=== PATIENT | female | born 1955 | race Caucasian/White ===

== ENCOUNTER 2016-11-29 10:38 | Outpatient (CLI) | payer OTHER ==
--- NOTE | 2016-12-11 10:22 | MMO ---
BILATERAL SCREENING MAMMOGRAM: INDICATION: Annual exam. COMPARISON: Prior exam dated 02/08/11. FINDINGS: The interpretation of this exam was assisted with computer-aided detection. Breast parenchyma is predominantly fatty replaced. Benign-appearing calcifications bilaterally. No suspicious mass, cluster of microcalcifications, or area of architectural distortion is evident. IMPRESSION: BI-RADS category 2 - benign. Recommend routine annual mammographic screening. POS: [facility]
== END 2016-11-29 10:39 | disposition home or self-care (01) ==
LOC: SCSMAMMO 10:38
PROVIDERS: ATTEND Family Medicine
DX: Z12.31 Encounter for screening mammogram for malignant neoplasm of breast (principal)
CPT/HCPCS: 77067; G0202

== ENCOUNTER 2017-07-09 07:59 | Outpatient (CLI) | payer OTHER ==
[2017-07-09 09:27] LABS: #Eosinphils 0.5 thou/uL (0.0-0.7); #Lymphocytes 1.4 thou/uL (1.20-3.40); #Monocytes 0.5 thou/uL (0.11-0.59); #Neutrophils 4.8 thou/uL (1.40-6.50); %Basophils 0.6 % (0.0-1.0); %Eosinophils 6.4 % (0.0-10.0); %Lymphocytes 19.6 % (21.0-51.0); %Monocytes 6.9 % (0.0-10.0); %Neutrophils 66.4 % (42.0-75.0); Hemoglobin 13.6 g/dL (12.0-16.0); Mean Corpuscular HGB CONC 33.6 g/dL (32.0-36.0); Mean Corpuscular Hemoglobin 32.3 pg (27.0-31.0); Mean Corpuscular Volume 96.3 fl (81.0-99.0); Mean Platelet Volume 7.2 fL (7.4-10.4); Platelet Count 267 thou/uL (130-400); RBC Distribution Width 12.8 % (11.5-14.5); Red Blood Cell (RBC) Count 4.22 mill/uL (4.20-5.40); White Blood Cell (WBC) Count 7.2 thou/uL (4.8-10.8)
[2017-07-09 09:36] LABS: Anion Gap 15 mmol/L (10-20); BUN (Urea Nitrogen) 18 mg/dL (9.8-20.1); Calc. Creatinine Clearance 0 mL/min (70-130); Calcium 11.1 mg/dL (7.8-10.44); Carbon Dioxide 26 mmol/L (22-29); Chloride 100 mmol/L (98-107); Estimated GFR-MDRD 62; Glucose 113 mg/dL (70-105); Potassium 4.2 mmol/L (3.5-5.1); Sodium 137 mmol/L (136-145)
--- NOTE | 2017-07-09 16:31 | EKG ---
Test Reason : Blood Pressure : / mmHG Vent. Rate : 072 BPM Atrial Rate : 072 BPM P-R Int : 172 ms QRS Dur : 094 ms QT Int : 380 ms P-R-T Axes : 053 014 019 degrees QTc Int : 416 ms Normal sinus rhythm Inferior infarct , age undetermined Cannot rule out Anterior infarct , age undetermined (PARWP) Abnormal ECG No previous ECGs available Confirmed by DR. Shani FLORENCE ([id number]) on 07/09/2017 4:31:01 PM Referred By: CHARBEL Confirmed By:DR. Shani FLORENCE
== END 2017-07-09 08:00 | disposition home or self-care (01) ==
LOC: LABBT 07:59
PROVIDERS: ATTEND Surgery
DX: Z01.812 Encounter for preprocedural laboratory examination (principal); K43.2 Incisional hernia without obstruction or gangrene
CPT/HCPCS: 80048; 85025; 93005; 93010

== ENCOUNTER 2017-07-11 05:34 | Day surgery (SDC) | payer OTHER ==
[2017-07-09 08:26] VITALS: BMI 42.0
[2017-07-11] MEDS ORDERED: Fentanyl 250 MCG/5 ML VIAL ONE (06:48)
[2017-07-11] MEDS ORDERED: CEFAZOLIN/Water 2 GM/20 ML SYRINGE ONE (06:56)
[2017-07-11] MEDS ORDERED: Bupivacaine/Epinephrine 0.25% 30 ML VIAL ONE (07:06)
[2017-07-11] MEDS ORDERED: Scopolamine 1.5 mg/72 hour Patch ONE (07:27)
[2017-07-11] MEDS ORDERED: Midazolam HCl 2 mg/2 ml Vial ONE (07:28)
[2017-07-11] MEDS ORDERED: HYDROmorphone 0.5 MG/0.5 ML SYRINGE ONE ×4 (09:42→10:52)
[2017-07-11] MEDS ORDERED: Fentanyl 100 MCG/2 ML VIAL ONE ×2 (09:53→10:04)
[2017-07-11] MEDS ORDERED: HYDROcodone/Acetaminophen 5/325 mg Tablet ONE (12:07)
[2017-07-11] MEDS ORDERED: PROPOFOL 200 MG/20 ML VIAL ONE (13:08)
[2017-07-11] MEDS ORDERED: Glycopyrrolate 0.2 MG/ML 5 ML SYRINGE ONE (13:08)
[2017-07-11] MEDS ORDERED: PHENYLEPHRINE-NS 100 MCG/ML 10 ML SYRINGE ONE (13:08)
[2017-07-11] MEDS ORDERED: diphenhydrAMINE 50 MG/ML VIAL ONE (13:08)
[2017-07-11] MEDS ORDERED: Lidocaine 1% PF 5 ML VIAL ONE (13:08)
--- NOTE | 2017-07-12 10:42 | OP ---
DATE OF PROCEDURE: 07/11/2017 PREOPERATIVE DIAGNOSIS: Incisional hernia. POSTOPERATIVE DIAGNOSIS: Incisional hernia. PROCEDURE: Laparoscopic da Roseline robot incisional hernia repair with mesh. SURGEON: Anthony Ramos M.D. ANESTHESIA: General. ESTIMATED BLOOD LOSS: Minimal. COMPLICATIONS: None. SPECIMEN: None. FINDINGS: Incisional hernia. TECHNIQUE: The patient was taken to the operation table, placed supine on the table. After general anesthetic was obtained, the abdomen was prepped and draped in a sterile fashion. Left subcostal 5-m m [employer] trocar was placed in the usual fashion. High-flow pneumoperitoneum was obtained. The pat ient had a defect in the area of the umbilicus, decision was made to place the ports down low. An 11 mm [employer] trocar was placed suprapubic and then assist robot trocars placed in left lower q uadrant and right lower quadrant. Robot is brought in as a side docked and all ports are docked to t he robot. The patient had a 2.5 to 3 cm defect in the area of the umbilicus, an area of previous her mariluz repair. The peritoneum is taken down exposing the defect. All adhesions were taken down as well . An 8 cm round mesh was brought into the sterile field, placed into the abdominal cavity. V-Loc rodriguez ture was used to close the fascial defects. The meshes laid over the top and held in place using the needle from the fascial closure. The nonadherent barrier side was placed down against the abdominal viscera. The exposed mesh is placed up against the posterior fascia. V-Loc sutures used to sew the mesh to the posterior fascia circumferentially around the edge. All needles were removed from the a bdomen. All port sites were infiltrated using local anesthetic. All ports are pulled and removed an d pneumoperitoneum is let down. A 4-0 Monocryl and Dermabond were used to close all skin incisions. The patient was en route to recovery in stable condition. All sponge counts, needle counts, lap cou nts were correct.
== END 2017-07-11 13:10 | disposition home or self-care (01) ==
LOC: SDC 05:34
PROVIDERS: ATTEND Surgery
PROC: 0WUF4JZ Supplement Abdominal Wall with Synthetic Substitute, Percutaneous Endoscopic Approach (ICD-10-PCS; principal; 2017-07-11)
DX: K43.2 Incisional hernia without obstruction or gangrene (principal); G25.81 Restless legs syndrome; I10 Essential (primary) hypertension; E11.9 Type 2 diabetes mellitus without complications; E53.8 Deficiency of other specified B group vitamins; E61.1 Iron deficiency; Z79.84 Long term (current) use of oral hypoglycemic drugs; Z79.899 Other long term (current) drug therapy; Z88.8 Allergy status to other drugs, medicaments and biological substances; Z91.048 Other nonmedicinal substance allergy status
CPT/HCPCS: 96374; 96375; J0131; J1170; J1200; J2001; J2250; J2704; J3010

== ENCOUNTER 2017-07-15 10:27 | Emergency (ER) | payer OTHER ==
[~2017-07-15 10:27] MED LIST: Iopamidol 370 76% 100 ML VIAL ONE
[2017-07-15 11:10] LABS: Bilirubin Negative (Negative); Blood, Urine Negative (Negative); Clarity Clear (Clear); Glucose, Urine (Dipstick) Negative (Negative); Leukocyte Negative (Negative); Nitrite Negative (Negative); Protein, Urine (Dipstick) Negative (Neg-Trace); Specific Gravity, Urine 1.015 (1.005-1.030); Urobilinogen 0.2 mg/dL (0.2-1.0)
[2017-07-15 11:14] LABS: #Basophils 0.1 thou/uL (0.0-0.2); #Eosinphils 0.7 thou/uL (0.0-0.7); #Lymphocytes 1.3 thou/uL (1.20-3.40); #Monocytes 0.8 thou/uL (0.11-0.59); #Neutrophils 5.7 thou/uL (1.40-6.50); %Basophils 1.4 % (0.0-1.0); %Eosinophils 7.8 % (0.0-10.0); %Lymphocytes 14.8 % (21.0-51.0); %Monocytes 8.9 % (0.0-10.0); %Neutrophils 67.1 % (42.0-75.0); Hemoglobin 12.1 g/dL (12.0-16.0); Mean Corpuscular HGB CONC 34.3 g/dL (32.0-36.0); Mean Corpuscular Hemoglobin 32.1 pg (27.0-31.0); Mean Corpuscular Volume 93.6 fl (81.0-99.0); Platelet Count 256 thou/uL (130-400); RBC Distribution Width 12.6 % (11.5-14.5); Red Blood Cell (RBC) Count 3.77 mill/uL (4.20-5.40); White Blood Cell (WBC) Count 8.5 thou/uL (4.8-10.8)
[2017-07-15 11:24] LABS: ALT (SGPT) 30 U/L (8-55); AST (SGOT) 21 U/L (5-34); Albumin 3.9 g/dL (3.5-5.0); Alkaline Phosphatase 80 U/L (40-150); Anion Gap 15 mmol/L (10-20); BUN (Urea Nitrogen) 17 mg/dL (9.8-20.1); Bilirubin, Total 0.6 mg/dL (0.2-1.2); Calc. Creatinine Clearance 0 mL/min (70-130); Calcium 10.8 mg/dL (7.8-10.44); Carbon Dioxide 29 mmol/L (22-29); Chloride 97 mmol/L (98-107); Estimated GFR-MDRD 69; Globulin 3.4 g/dL (2.4-3.5); Glucose 135 mg/dL (70-105); Lipase 26 U/L (8-78); Potassium 4.1 mmol/L (3.5-5.1); Protein, Total 7.3 g/dL (6.0-8.3); Sodium 137 mmol/L (136-145)
--- NOTE | 2017-07-15 14:27 | CT ---
CT ABDOMEN AND PELVIS WITH IV CONTRAST: Date: 07-15-17 History: Ventral abdominal wall hernia repair on . Now patient is complaining of pain at surg ical site. Mild nausea. Comparison: None available. FINDINGS: There is subcutaneous emphysema seen about the abdomen and pelvis, predominately anteriorly as well a s laterally on the right. There is free intraperitoneal gas also present, as well as gas seen extendi ng inferiorly into the region of Velasquez's pouch and adjacent to the right kidney at retroperitoneal location. Post-surgical changes of the stomach are noted. Post cholecystectomy changes are also present. Decreased attenuation of the liver is present, likely attributable to fatty infiltration. The spleen, pancreas, left adrenal gland, and right kidney demonstrate a normal CT appearance. There is a right adrenal nodule measuring 1.3 cm which cannot be further characterized on this exam. A small exophytic fluid attenuation cystic lesion in the superior pole left kidney measuring 1.2 cm a ttributable to the left renal cyst. The abdominal aorta and urinary bladder have a normal CT appearance. The opacified bowel is normal in caliber. There is mesh material seen within the anterior aspect of the upper abdomen. Just inferior to this lo cation, there is stranding in the subcutaneous soft tissues as well as in the abdomen. Within a supra umbilical location, there is a small fluid and air collection in the subcutaneous soft tissues measur ing approximately 3.1 cm x 1.3 cm. This could be related to post-operative changes although developin g infectious process cannot be excluded. IMPRESSION: 1. Subcutaneous gas as well as free intraperitoneal gas dissecting into the retroperitoneal location on the right. These findings are probably post-surgical in origin, but correlation clinically is harlan mmended. There is no extravasation of contrast identified. 2. Post-surgical changes related to prior abdominal wall hernia repair with mesh material in the ante rior superior aspect of the upper abdomen. Inferior to this level, but in a supraumbilical location i s a small fluid and gas collection in the subcutaneous soft tissues. While this may be related to rec ent post-surgical changes, developing infectious process cannot be entirely excluded. 3. Right adrenal nodule. Follow up CT scan examination following adrenal mass protocol without IV con trast is recommended. 4. Small left renal cyst. 5. Fatty infiltration of the liver. 6. Post-surgical changes of the stomach as well as post cholecystectomy changes. 7. Hysterectomy. 8. Above findings discussed with Dr. Byrne in the Emergency Department on 07-15-17 at 1309 hours. POS: [facility]
== END 2017-07-15 13:30 | disposition home or self-care (01) ==
LOC: SCSER 10:27
DX: R10.84 Generalized abdominal pain (principal); E11.9 Type 2 diabetes mellitus without complications; E78.5 Hyperlipidemia, unspecified; I10 Essential (primary) hypertension; E66.9 Obesity, unspecified; F32.9 Major depressive disorder, single episode, unspecified; Z87.891 Personal history of nicotine dependence; Z79.899 Other long term (current) drug therapy; Z79.84 Long term (current) use of oral hypoglycemic drugs; Z98.890 Other specified postprocedural states
CPT/HCPCS: 74177; 80053; 81003; 83605; 83690; 85025

== ENCOUNTER 2017-09-04 07:26 | Outpatient (CLI) | payer OTHER ==
[2017-09-04] MEDS ORDERED: Iopamidol 370 76% 50 ML VIAL FS ONE (09:57)
[2017-09-04] MEDS ORDERED: Iopamidol 370 76% 100 ML VIAL ONE (09:57)
--- NOTE | 2017-09-04 12:00 | CT ---
CT NECK WITH AND WITHOUT CONTRAST: 09/04/2017 HISTORY: Hyperparathyroidism. TECHNIQUE: Serial axial CT imaging is obtained at 2.5 mm intervals, from the skull base through the lung apices, with and without contrast, using a parathyroid protocol. Coronal reformatted imaging obtained. FINDINGS: The imaged lung apices appear unremarkable. The visualized paranasal sinuses and mastoid air cells are well aerated. No acute osseous abnormality is evident. The retroantral and parapharyngeal fat appears clear. The parotid and submandibular glands appear un remarkable. The region of the tonsillar pillars, the epiglottis, the pre-epiglottic fat, the hyoid b one, the thyroid cartilage, and the cricoid cartilage appear unremarkable. There is no lymphadenopathy noted within the neck. On the noncontrast enhanced imaging, there is a hypodense mass inferior to the left lobe of the thyro id gland, measuring 1.5 cm. On the 25 second delayed imaging, this lesion is slightly obscured by st reak artifact from venous contrast media. This lesion demonstrates enhancement on the 65 second delroy yed imaging. This is a good candidate for a parathyroid adenoma. Vascular structures of the neck appear patent. There is tortuosity of the bilateral internal carotid arteries. IMPRESSION: Findings suspicious for a parathyroid adenoma, inferior to the left lobe of the thyroid gland. Corre lation with nuclear medicine examination advised. POS: [facility]
--- NOTE | 2017-09-04 12:48 | NM ---
PARATHYROID SCAN: 09/04/2017 HISTORY: Primary hyperparathyroidism. Hypercalcemia. RADIOPHARMACEUTICAL: Technetium 99m sestamibi 24 millicuries IV. VIEWS OBTAINED: Anterior and oblique with immediate and two hour delayed imaging obtained. FINDINGS: There is normal uptake of radiotracer within the salivary glands. Uptake is seen within each lobe of the thyroid gland, with more focal increased activity seen within the inferior pole, left lobe of th e thyroid gland, which is seen on both the immediate as well as the two hour delayed images with wash -out of activity in the remainder of the thyroid gland on the two hour delayed imaging. The focal ar ea of increased uptake of radiotracer corresponds to a hypodense focus seen on the CT examination of the neck, obtained just prior to this exam. IMPRESSION: Focal intense uptake of radiotracer overlying the inferior pole, left lobe of the thyroid gland, amos esponding to lesion seen in this region on CT scan examination. Findings are suggestive of a parathy roid lesion and probably parathyroid adenoma. POS: [facility]
== END 2017-09-04 07:27 | disposition home or self-care (01) ==
LOC: NM 07:26
PROVIDERS: ATTEND Otolaryngology Plastic Surgery within the Head & Neck
DX: E21.0 Primary hyperparathyroidism (principal)
CPT/HCPCS: 70492; 78072; A9500

== ENCOUNTER 2018-06-17 15:15 | Outpatient (CLI) | payer OTHER ==
--- NOTE | 2018-06-18 07:57 | MMO ---
Bilateral MAMMO Bilat Screen [facility]. CLINICAL HISTORY: Patient is 63 years old and is seen for screening. The patient has no family history of breast cancer. The patient has a history of endometrial cancer. VIEWS: The views performed were: bilateral craniocaudal and bilateral mediolateral oblique. FILMS COMPARED: The present examination has been compared to prior imaging studies performed at [facility] on 08/17/2005, 02/08/2011 and 11/29/2016. This study has been interpreted with the assistance of computer-aided detection. MAMMOGRAM FINDINGS: There are scattered fibroglandular densities. There are no suspicious masses, suspicious calcifications, or new areas of architectural distortion. IMPRESSION: THERE IS NO MAMMOGRAPHIC EVIDENCE OF MALIGNANCY. A ROUTINE FOLLOW-UP MAMMOGRAM IN 1 YEAR IS RECOMMENDED. ACR BI-RADS Category 1 - Negative MAMMOGRAPHY NOTE: 1. A negative mammogram report should not delay a biopsy if a dominant of clinically suspicious mass is present. 2. Approximately 10% to 15% of breast cancers are not detected by mammography. 3. Adenosis and dense breasts may obscure an underlying neoplasm.
== END 2018-06-17 15:16 | disposition home or self-care (01) ==
LOC: SCSMAMMO 15:15
PROVIDERS: ATTEND Family Medicine
DX: Z12.31 Encounter for screening mammogram for malignant neoplasm of breast (principal); Z85.42 Personal history of malignant neoplasm of other parts of uterus
CPT/HCPCS: 77067